=== PATIENT | female | born 1965 | race Caucasian/White ===

== ENCOUNTER → 2017-02-05 | Outpatient (CLI) | payer OTHER ==
--- NOTE | 2017-02-06 08:25 | MM ---
Reason for exam: screening (asymptomatic). Last mammogram was performed 2 years and 11 months ago. Physical Findings: A clinical breast exam by your physician is recommended on an annual basis and results should be correlated with mammographic findings. MG Screening Mammo w CAD Bilateral CC and MLO view(s) were taken. Prior study comparison: March 16, 2014, bilateral digital screening mammo w/CAD. December 29, 2012, bilateral digital screening mammo w/CAD. January 25, 2011, bilateral digital screening mammo w/CAD. The breast tissue is heterogeneously dense. This may lower the sensitivity of mammography. Finding: There is an obscured, indistinct mass in the upper outer quadrant, posterior position of the left breast. ASSESSMENT: Incomplete: need additional imaging evaluation, BI-RAD 0 RECOMMENDATION: Ultrasound and special view mammogram of the left breast. (palpable and mammographic abnormality) [facility] will attempt to contact patient to return for supplemental views and ultrasound.
== END | disposition home or self-care (01) ==
LOC: RADMAMWWP 10:09
PROVIDERS: ATTEND Family Medicine
DX: Z12.31 Encounter for screening mammogram for malignant neoplasm of breast (principal)

== ENCOUNTER → 2017-02-12 | Outpatient (CLI) | payer OTHER ==
--- NOTE | 2017-02-12 11:49 | MM ---
Reason for exam: additional evaluation requested from abnormal screening. Last mammogram was performed less than 1 month ago. Physical Findings: Nurse Summary: 1cm nodule in the left breast at 2-3 o'clock (nurse genie). MG 3D Work Up W/Cad LT CC and MLO view(s) were taken of the left breast. Prior study comparison: February 05, 2017, bilateral MG screening mammo w CAD. March 16, 2014, bilateral digital screening mammo w/CAD. No significant new findings when compared with previous films. These results were verbally communicated with the patient and result sheet given to the patient on 02/12/17. ASSESSMENT: Benign, BI-RAD 2 RECOMMENDATION: Return to routine screening mammogram schedule for both breasts.
--- NOTE | 2017-02-12 11:50 | USB ---
Reason for exam: additional evaluation requested from abnormal screening. US Breast Workup Limited LT Left breast ultrasound demonstrates three oval, cystic lesions measuring 8 x 3 x 5mm at 1 o'clock, 4 x 3 x 2mm at 2 o'clock and 11 x 6 x 9mm at 3 o'clock. These results were verbally communicated with the patient and result sheet given to the patient on 02/12/17. ASSESSMENT: Benign, BI-RAD 2 RECOMMENDATION: Return to routine screening mammogram schedule for both breasts.
== END | disposition home or self-care (01) ==
LOC: RADMAMWWP 10:23
PROVIDERS: ATTEND Family Medicine
DX: R92.8 Other abnormal and inconclusive findings on diagnostic imaging of breast (principal)
CPT/HCPCS: 76642; G0206; G0279

== ENCOUNTER → 2018-03-19 | Outpatient (CLI) | payer OTHER ==
--- NOTE | 2018-03-19 19:43 | CT ---
EXAMINATION TYPE: CT ChestAbdPelvis w con DATE OF EXAM: 03/19/2018 COMPARISON: NONE HISTORY: Abnormal weight loss, epigastric pain. CT DLP: 584.1 mGycm Automated exposure control for dose reduction was used. CONTRAST: CT scan of the chest, abdomen and pelvis is performed with Oral Contrast and with IV Contrast, patien t injected with 100 mL of Isovue 300. FINDINGS: The lungs are clear of consolidation. There is minimal reticular density at the left posterior lung b ases consistent with scarring and atelectasis. Heart size is normal. There is no pericardial effusion . There is no mediastinal adenopathy. There are no hilar masses. There is normal heart size. There is a 2 cm cyst in the left lobe of the liver. Gallbladder appears normal. Bile ducts are not di lated. Spleen appears normal. There is no evidence of pancreatic mass. There is no adrenal mass. There are left-sided renal parapelvic cysts. There is no hydronephrosis. Th ere is normal contrast opacification the kidneys. There is no evidence of a solid renal mass. There i s no retroperitoneal adenopathy. Bladder distends smoothly. Uterus is anteverted. I see no intestinal wall thickening. There are no di lated loops. There is no free fluid in the pelvis. There is no sign of free air. I see no bony destructive process . There is no compression fracture. Appendix is not seen. There is no sign of appendicitis. IMPRESSION: Small hepatic cyst. Mild scarring and atelectasis at the left posterior lung base. I do n ot see a cause for weight loss. Left renal parapelvic cysts.
== END | disposition home or self-care (01) ==
LOC: RADCTMAIN 16:13
PROVIDERS: ATTEND Family Medicine
DX: K76.89 Other specified diseases of liver (principal); J98.4 Other disorders of lung; J98.11 Atelectasis; N28.1 Cyst of kidney, acquired; R63.4 Abnormal weight loss
CPT/HCPCS: 71260; 74177; Q9967

== ENCOUNTER → 2019-11-25 | Outpatient (CLI) | payer OTHER ==
--- NOTE | 2019-11-29 09:27 | MM ---
Reason for exam: screening (asymptomatic). Last mammogram was performed 2 years and 9 months ago. Physical Findings: A clinical breast exam by your physician is recommended on an annual basis and results should be correlated with mammographic findings. MG Screening Mammo w CAD Bilateral CC and MLO view(s) were taken. XCCL view(s) were taken of the left breast. Prior study comparison: February 12, 2017, left breast MG 3d work up w/cad LT. February 05, 2017, bilateral MG screening mammo w CAD. The breast tissue is heterogeneously dense. This may lower the sensitivity of mammography. No significant changes when compared with prior studies. ASSESSMENT: Negative, BI-RAD 1 RECOMMENDATION: Routine screening mammogram of both breasts in 1 year.
== END | disposition home or self-care (01) ==
LOC: RADMAMWWP 13:17
PROVIDERS: ATTEND Family Medicine
DX: Z12.31 Encounter for screening mammogram for malignant neoplasm of breast (principal)
CPT/HCPCS: 77067

== ENCOUNTER → 2024-04-10 | Outpatient (CLI) | payer OTHER ==
[2024-04-10 22:32] LABS: Basophils # (A) 0.04 X 10*3/uL (0.00-0.10); Basophils % (A) 0.9 %; Eosinophils # (A) 0.15 X 10*3/uL (0.04-0.35); Eosinophils % (A) 3.3 %; HCT 43.6 % (37.2-46.3); HGB 14.2 g/dL (12.0-15.0); Lymphocytes # (A) 1.29 X 10*3/uL (0.90-5.00); Lymphocytes % (A) 28.2 %; MCHC 32.6 g/dL (32.0-37.0); MCV 89.2 FL (80.0-97.0); Mean Platelet Volume 10.6 FL (9.5-12.2); Monocytes % (A) 8.7 %; NRBC Per 100 WBC 0 X 10*3/uL (0.00-0.01); Neutrophils # (A) 2.69 X 10*3/uL (1.80-7.70); Neutrophils % (A) 58.7 %; Platelet Count 211 X 10*3/uL (140-440); RBC 4.89 X 10*6/uL (4.10-5.20); WBC 4.58 X 10*3/uL (4.50-10.00)
[2024-04-10 22:59] LABS: % Iron Saturation 27.18 (12.00-45.00); ALT 20 U/L (8-44); AST 24 U/L (13-35); Albumin 4.4 g/dL (3.8-4.9); Alkaline Phosphatase 91 U/L (41-126); BUN/Creat Ratio 28.17 Ratio (12.00-20.00); Blood Urea Nitrogen 16.9 mg/dL (9.0-27.0); Calcium 9.2 mg/dL (8.7-10.3); Carbon Dioxide 25.2 mmol/L (21.6-31.8); Chloride 107 mmol/L (96-109); Chol/HDL Ratio 3.44 Ratio; Ferritin 89.6 ng/mL (10.0-291.0); Globulin 2.1 g/dL (1.6-3.3); Glucose 94 mg/dL (70-110); Iron 103 UG/DL (50-170); LDL Cholesterol,Calculated 139.9 mg/dL (0.0-131.0); Sodium 143 mmol/L (135-145); Testosterone <10.00 ng/dL (7.00-45.62); Total Bilirubin 0.4 mg/dL (0.3-1.2); Total Iron Binding Capacity 379 UG/DL (228-460); Total Protein 6.5 g/dL (6.2-8.2)
== END | disposition home or self-care (01) ==
LOC: LABWHC1 11:17
PROVIDERS: ATTEND Family Medicine
DX: L65.9 Nonscarring hair loss, unspecified (principal); E78.00 Pure hypercholesterolemia, unspecified
CPT/HCPCS: 36415; 80053; 80061; 82607; 82728; 83540; 83550; 84402; 84403; 84443; 85025

== ENCOUNTER 2024-08-31 12:26 | Emergency (ER) | payer OTHER ==
[2024-08-31 13:10] VITALS: RESP 16
--- NOTE | 2024-08-31 13:56 | ED ---
General Adult HPI - General Chief complaint: Head Injury Stated complaint: [facility]-Head injury Time Seen by Provider: 08/31/24 13:30 Source: patient, RN notes reviewed, old records reviewed Mode of arrival: ambulatory Limitations: no limitations - History of Present Illness Initial comments: Patient is a 59-year-old female presents emergency department complaining of mild head trauma. Patient struck her head on a shelf at work at [employer]. Had a contusion on her forehead. Iced it and the contusion went down. Denies loss of consciousness. Is not on blood thinners. Denies nausea or vomiting. Denies chest pain or shortness of breath. Denies abdominal pain. No other obvious injuries. Presents for further evaluation at this time. Denies any amnesia regarding the event. - Related Data Allergies Allergy/AdvReac Type Severity Reaction Status Date / Time morphine AdvReac Vomiting Verified 08/31/24 12:32 sulfamethoxazole AdvReac Anaphylaxis Verified 08/31/24 12:32 [From Bactrim] trimethoprim [From Bactrim] AdvReac Anaphylaxis Verified 08/31/24 12:32 Review of Systems ROS Statement: Those systems with pertinent positive or pertinent negative responses have been documented in the HPI. Review of Systems: CONST: Denies fever EYES: Denies blurry vision ENT: Denies nasal congestion C/V: Denies Chest pain RESP: Denies shortness of breath GI: Denies abdominal pain : Denies dysuria SKIN: Endorses forehead contusion MSK: Denies joint pain. NEURO: Denies headache ROS Other: All systems not noted in ROS Statement are negative. Past Medical History Past Medical History: Hyperlipidemia History of Any Multi-Drug Resistant Organisms: None Reported Past Surgical History: Orthopedic Surgery Past Psychological History: Anxiety, Depression Smoking Status: Never smoker Past Alcohol Use History: None Reported Past Drug Use History: None Reported General Exam - General Exam Comments Initial Comments: General: Appears in no acute distress. HEAD: Forehead contusion over the left forehead. Negative Sanchez sign. Negative raccoon eyes. EYES: PERRLA, EOMI, conjunctiva normal, no discharge. Pupils 3 mm and equal bilaterally. ENT: Hearing grossly intact, normal oropharynx. RESPIRATORY: Clear breath sounds bilaterally. No wheezes, rales, or rhonchi. C/V: Regular rate and rhythm. S1 and S2 auscultated, peripheral pulses 2+ and intact throughout ABD: Abd is soft, nontender, nondistended EXT: Normal range of motion, no obvious deformity. No midline spine tenderness to palpation. No step-offs or deformities of the spine. Pelvis is stable. SKIN: No rashes or lesions observed on exposed skin. NEURO: Alert and orient x 4. Ambulates without difficulty. GCS of 15. Acting appropriately. Limitations: no limitations Course Vital Signs 08/31/24 08/31/24 08/31/24 12:28 12:32 14:35 Temperature 97.7 F 97.9 F Pulse Rate 78 53 L 69 Respiratory 18 16 16 Rate Blood Pressure 151/80 131/88 129/86 O2 Sat by Pulse 98 98 98 Oximetry Medical Decision Making - Medical Decision Making Was pt. sent in by a medical professional or institution (, PA, PLANT TECH, urgent care, hospital, or senior living...) When possible be specific @ -No Did you speak to anyone other than the patient for history (EMS, parent, family, police, friend...)? What history was obtained from this source @ -No Did you review nursing and triage notes (agree or disagree)? Why? @ -I reviewed and agree with nursing and triage notes Were old charts reviewed (outside hosp., previous admission, EMS record, old EKG, old radiological studies, urgent care reports/EKG's, senior living records)? Report findings @ -No old charts were reviewed Differential Diagnosis (chest pain, altered mental status, abdominal pain women, abdominal pain men, vaginal bleeding, weakness, fever, dyspnea, syncope, headache, dizziness, GI bleed, back pain, seizure, CVA, palpatations, mental health, musculoskeletal)? @ -Differential Musculoskeletal Muscular strain, contusion, ligament sprain, fracture, arthritis, septic arthritis, bursitis, cellulitis, muscle spasm, nerve compression, DVT, arterial occlusion, herpes zoster, electrolyte abnormality, tumor.... This is not meant to be in all inclusive list EKG interpreted by me (3pts min.). @ -None done X-rays interpreted by me (1pt min.). @ -None done CT interpreted by me (1pt min.). @ -None done U/S interpreted by me (1pt. min.). @ -None done What testing was considered but not performed or refused? (CT, X-rays, U/S, labs)? Why? @ -None What meds were considered but not given or refused? Why? @ -None Did you discuss the management of the patient with other professionals (professionals i.e. , PA, PLANT TE[employer], lab, RT, psych nurse, clinical social worker, child therapist, teacher, combatant diver officer, case reviewer)? Give summary @ -No Was smoking cessation discussed for >3mins.? @ -No Was critical care preformed (if so, how long)? @ -No Were there social determinants of health that impacted care today? How? (Homelessness, low income, unemployed, alcoholism, drug addiction, transportation, low edu. Level, literacy, decrease access to med. care, skilled nursing, rehab)? @ -No Was there de-escalation of care discussed even if they declined (Discuss DNR or withdrawal of care, Hospice)? DNR status @ -No What co-morbidities impacted this encounter? (DM, HTN, Smoking, COPD, CAD, Cancer, CVA, ARF, Chemo, Hep., AIDS, mental health diagnosis, sleep apnea, morbid obesity)? @ -None Was patient admitted / discharged? Hospital course, mention meds given and route, prescriptions, significant lab abnormalities, going to OR and other pertinent info. @ -Patient presents for minor head trauma. Has a contusion on her forehead from hitting it on a shelf at work. Sent here for medical evaluation and clearance. Based on [place] head CT rules, patient does not meet criteria for CT brain. I did discuss this with the patient she was in agreement this plan. Recommended [id number] analgesia medications as well as icing. She will be given a work note. No other obvious injuries. No laboratory studies or imaging needed. She was in agreement this plan. She will be discharged home at this time with strict return precautions. I instructed the patient to follow up with their PCP in the next 1-3 days. I explained that the patient should return to the emergency department if they experience any worsening symptoms. Strict return precautions were discussed with the patient. The patient expressed understanding of these instructions. I answered all questions that the patient had. The patient was discharged home in good condition with their prescriptions and follow up information. Undiagnosed new problem with uncertain prognosis? @ -No Drug Therapy requiring intensive monitoring for toxicity (Heparin, Nitro, Insulin, Cardizem)? @ -No Were any procedures done? @ -No Diagnosis/symptom? @ -Minor head trauma, forehead contusion Acute, or Chronic, or Acute on Chronic? @ -Acute Uncomplicated (without systemic symptoms) or Complicated (systemic symptoms)? @ -Uncomplicated Side effects of treatment? @ -No Exacerbation, Progression, or Severe Exacerbation? @ -No Poses a threat to life or bodily function? How? (Chest pain, [place], [place], pneumonia, PE, COPD, DKA, ARF, appy, cholecystitis, CVA, Diverticulitis, Homicidal, Suicidal, threat to staff... and all critical care pts) @ -Unlikely Disposition Clinical Impression: Minor head trauma, Forehead contusion Disposition: HOME SELF-CARE Condition: Good Instructions (If sedation given, give patient instructions): Concussion (ED) Is patient prescribed a controlled substance at d/c from ED?: No Referrals: Laurie Nichols MD [Primary Care Provider] - 1-2 days Time of Disposition: 13:56
[2024-08-31 14:36] VITALS: BP 129/86; PULSE 69; TEMP 97.9
== END 2024-08-31 14:37 | disposition home or self-care (01) ==
LOC: EC 12:26
CPT/HCPCS: 99283

== ENCOUNTER → 2024-09-25 | Outpatient (CLI) | payer BC ==
[2024-09-25 23:39] LABS: Basophils # (A) 0.03 X 10*3/uL (0.00-0.10); Basophils % (A) 0.7 %; Eosinophils # (A) 0.15 X 10*3/uL (0.04-0.35); Eosinophils % (A) 3.6 %; HGB 14.3 g/dL (12.0-15.0); Lymphocytes # (A) 1.19 X 10*3/uL (0.90-5.00); Lymphocytes % (A) 28.5 %; MCH 28.7 pg (27.0-32.0); MCHC 32.5 g/dL (32.0-37.0); MCV 88.4 FL (80.0-97.0); Mean Platelet Volume 10.3 FL (9.5-12.2); Monocytes # (A) 0.46 X 10*3/uL (0.20-1.00); NRBC Per 100 WBC 0 X 10*3/uL (0.00-0.01); Neutrophils # (A) 2.33 X 10*3/uL (1.80-7.70); Platelet Count 208 X 10*3/uL (140-440); RBC 4.98 X 10*6/uL (4.10-5.20); RDW 12.9 % (11.5-14.5); WBC 4.17 X 10*3/uL (4.50-10.00)
[2024-09-26 08:00] LABS: ALT 19 U/L (8-44); AST 26 U/L (13-35); Albumin 4.6 g/dL (3.8-4.9); Albumin/Globulin Ratio 2.19 Ratio (1.60-3.17); Alkaline Phosphatase 91 U/L (41-126); BUN/Creat Ratio 21.43 Ratio (12.00-20.00); Calcium 9.4 mg/dL (8.7-10.3); Carbon Dioxide 24.7 mmol/L (21.6-31.8); Chloride 107 mmol/L (96-109); Chol/HDL Ratio 3.53 Ratio; Globulin 2.1 g/dL (1.6-3.3); Glucose 92 mg/dL (70-110); LDL Cholesterol,Calculated 140.9 mg/dL (0.0-131.0); Potassium 4.2 mmol/L (3.5-5.5); Sodium 143 mmol/L (135-145); Total Bilirubin 0.4 mg/dL (0.3-1.2); Total Protein 6.7 g/dL (6.2-8.2); VLDL Calculation 17.54 mg/dL (5.00-40.00)
== END | disposition home or self-care (01) ==
LOC: LABWHC1 10:58
PROVIDERS: ATTEND Family Medicine
DX: Z00.00 Encounter for general adult medical examination without abnormal findings (principal)
CPT/HCPCS: 36415; 80053; 80061; 84443; 85025

== ENCOUNTER → 2024-10-14 | Outpatient (CLI) | payer BC, OTHER ==
--- NOTE | 2024-10-17 13:15 | MR ---
EXAMINATION TYPE: MR brain wo/w con DATE OF EXAM: 10/14/2024 3:44 PM COMPARISON: None. CLINICAL INDICATION: Female, 59 years old with history of H47.333 HEADACHE; PHH, Dizziness, pseudopap illedema TECHNIQUE: Multi planar, multi sequence imaging was performed through the brain including: T1, T2, In version recovery, susceptibility weighted imaging and gradient echo imaging and Diffusion weighted im aging. The patient was then given intravenous contrast and multi planar, T1 fat-saturation images wer e obtained. IV Contrast: 7.5 mL Gadobutrol FINDINGS: The globes and orbits are symmetrical without abnormal postcontrast enhancement. The washing[place]-white junctions, ventricular system, basal cisterns appear unremarkable. Diffusion-weighted imaging shows no evidence of restricted diffusion to suggest acute/subacute infarct. Intracranial ar terial flow voids are maintained. Midline structures show no abnormality. Scattered foci of high T2 s ignal intensity are seen within the periventricular white matter. The susceptibility weighted images do not reveal any evidence for micro-hemorrhage. After administration of gadolinium, no abnormal enha ncement is seen. The bone marrow signal is within normal limits. Paranasal sinuses and mastoid air cells: No significant paranasal sinus disease. Visualized orbits: Orbital contents are intact. IMPRESSION: 1. No evidence of intracranial mass, acute/subacute infarct, or abnormal enhancement. 2. Nonspecific white matter changes, likely related to small vessel ischemic disease versus sequela f rom migraines versus other [facility], , 10/17/2024 1:13 PM
== END | disposition home or self-care (01) ==
LOC: RADMRIMAIN 14:32
PROVIDERS: ATTEND Ophthalmology
DX: H47.333 Pseudopapilledema of optic disc, bilateral (principal); G44.219 Episodic tension-type headache, not intractable; R90.82 White matter disease, unspecified; I67.82 Cerebral ischemia
CPT/HCPCS: 70553; A9585

== ENCOUNTER → 2024-10-14 | Outpatient (CLI) | payer BC ==
--- NOTE | 2024-10-14 17:21 | XR ---
EXAMINATION TYPE: XR knee 4V bilateral DATE OF EXAM: 10/14/2024 4:56 PM COMPARISON: None CLINICAL INDICATION: Female, 59 years old with history of M25.561, M25.562; [facility] TECHNIQUE: XR knee 4V bilateral 4 views submitted. FINDINGS: No evidence of any acute osseous pathology, soft tissue swelling, or joint effusion is no katt. IMPRESSION: 1. No acute osseous pathology. 2. Mild tricompartmental osteoarthritic changes. [facility], , 10/14/2024 5:18 PM
== END | disposition home or self-care (01) ==
LOC: RADXRMAIN 16:19
PROVIDERS: ATTEND Family Medicine
DX: M17.0 Bilateral primary osteoarthritis of knee (principal)

== ENCOUNTER → 2024-10-14 | Outpatient (CLI) | payer BC, OTHER ==
--- NOTE | 2024-10-15 14:57 | MM ---
Reason for Exam: Screening (asymptomatic). Last mammogram was performed 4 year(s) and 10 month(s) ago. Patient History: Menarche at age 14. First Full-Term at age 23. Risk Values: Henrietta 5 year model risk: 1.2%. NCI Lifetime model risk: 6.9%. Prior Study Comparison: 02/05/2017 Bilateral Screening Mammogram, [facility]. 02/12/2017 Left Diagnostic Mammogram, [facility]. 11/25/2019 Bilateral Screening Mammogram, [facility]. Tissue Density: The breasts are heterogeneously dense, which may obscure small masses. Findings: Analyzed By CAD. Right breast: There is no suspicious group of microcalcifications or new suspicious mass. No finding to correlate with patient's area of lumps. Left breast: There is no suspicious group of microcalcifications or new suspicious mass. No finding to correlate with patient's area of lumps. Overall Assessment: Incomplete: need additional imaging evaluation, BI-RAD 0 Management: Diagnostic Breast Ultrasound of both breasts. [facility] will attempt to contact patient to return for supplemental views and ultrasound if indicated. Patient should continue monthly self-breast exams. A clinical breast exam by your physician is recommended on an annual basis. This exam should not preclude additional follow-up of suspicious palpable abnormalities. Note on Henrietta scores and lifetime risk: 1. A Henrietta score greater than 3% is considered moderate risk. If this is the case, consider specialist referral to assess eligibility for a risk reducing agent. 2. If overall lifetime risk for the development of breast cancer is 20% or higher, the patient may qualify for future screening with alternating mammogram and breast MRI. [facility], , 10/15/2024 2:54 PM. Electronically signed and approved by: Varun Gupta DO
== END | disposition home or self-care (01) ==
LOC: RADMAMWWP 15:52
PROVIDERS: ATTEND Family Medicine
DX: Z12.31 Encounter for screening mammogram for malignant neoplasm of breast (principal); R92.333 Mammographic heterogeneous density, bilateral breasts
CPT/HCPCS: 77063; 77067

== ENCOUNTER → 2024-10-19 | Outpatient (CLI) | payer BC ==
--- NOTE | 2024-10-26 11:14 | USB ---
Reason for Exam: Additional evaluation requested from abnormal screening. Patient History: Menarche at age 14. First Full-Term at age 23. Risk Values: Henrietta 5 year model risk: 1.2%. NCI Lifetime model risk: 6.9%. Technique: Method: Whole Breast Handheld. Prior Study Comparison: 02/12/2017 Left Diagnostic Mammogram, [facility]. 11/25/2019 Bilateral Screening Mammogram, [facility]. 10/14/2024 Bilateral MG 3D screening mammo w/cad, [facility]. Findings: The whole breast of both breasts, the axilla of both breasts and the retroareolar of both breasts were scanned. A complete US of all four quadrants of the breast, axilla, and retro-areolar region were reviewed. Some prominent subareolar duct ectasia is noted on both sides. No solid or cystic lesion or axillary lymphadenopathy on either side. There is an elongated hypoechoic area measuring 2.4 x 1.7 x 0.5 cm overlying the chest wall musculature left breast 4:00 position, suspected to represent anisotropy of the musculature. Precautionary six-month follow-up recommended to reassess this area. No discrete abnormality seen within the lateral right breast and medial left breast at the patient's sites of discomfort/tenderness. Overall Assessment: Probably benign, BI-RAD 3 Management: Diagnostic Breast Ultrasound of the left breast in 6 months. Also, further clinical management of any breast pain/discomfort or any suspicious palpable area. Results were given to the patient verbally at the time of exam. [facility], , 10/19/2024 3:18 PM. Electronically signed and approved by: Christine Peter M.D. Radiologist
== END | disposition home or self-care (01) ==
LOC: RADUSWWP 14:01
PROVIDERS: ATTEND Family Medicine
DX: R92.8 Other abnormal and inconclusive findings on diagnostic imaging of breast (principal)

== ENCOUNTER → 2025-05-09 | Outpatient (CLI) | payer BC ==
--- NOTE | 2025-05-09 15:46 | USB ---
Reason for Exam: Follow-up at short interval from prior study. Patient History: Menarche at age 14. First Full-Term at age 23. Risk Values: Henrietta 5 year model risk: 1.2%. NCI Lifetime model risk: 6.9%. Technique: Method: Targeted. Prior Study Comparison: 02/12/2017 Left Diagnostic Mammogram, [facility]. 11/25/2019 Bilateral Screening Mammogram, [facility]. 10/14/2024 Bilateral MG 3D screening mammo w/cad, [facility]. Findings: The medial section of the breast of the left breast, the axilla of the left breast and the retroareolar of the left breast were scanned. Targeted ultrasound left breast 3:00 to 5:00 position including scanning of the subareolar region and axilla. At the previous deep 4:00 site, we again note an area of elongated hypoechogenicity overlying the chest wall. Possible chest wall musculature. The area appears less pronounced from prior exam. No solid or cystic lesion or axillary adenopathy. Overall Assessment: Benign, BI-RAD 2 Management: Screening Mammogram of both breasts in 5 months. A clinical breast exam by your physician is recommended on an annual basis and results should be correlated with mammographic findings. This exam should not preclude additional follow-up of suspicious palpable abnormalities. Results were given to the patient verbally at the time of exam. [facility], , 05/09/2025 3:43 PM. Electronically signed and approved by: Christine Peter M.D. Radiologist
== END | disposition home or self-care (01) ==
LOC: RADUSWWP 15:09
PROVIDERS: ATTEND Family Medicine
DX: R92.8 Other abnormal and inconclusive findings on diagnostic imaging of breast (principal)